=== PATIENT | female | born 1975 | race Two or more races ===

== ENCOUNTER 2022-08-14 17:31 | Emergency (ER) | payer OTHER ==
[~2022-08-14] VITALS: Ht 144.8 cm; Wt 47.6 kg
[~2022-08-14 17:31] MED LIST: CLOTRIMAZOLE10 MG MM; CORTEF20 MG; CORTISONE25 MG; DEXAMETHASONE0.5 MG; DEXAMETHASONE0.75 MG PO; DIFLUNISAL500 MG PO; FLUDROCORTISON0.1 MG PO; INTESTINEX680 MG PO; LEVAQUIN500 MG PO; LEVSIN/SL0.125 MG PO; OMEGA 3 FISH O1 EACH; Prednisone PO; VANCOMYCIN HCL250 MG; ZANTAC150 MG PO
[2022-08-14] MEDS ORDERED: HYDROCORTISONE10 MG PO (17:42)
[2022-08-14] MEDS ORDERED: EYE DROPS15 M1 OP (17:43)
[2022-08-14] MEDS ORDERED: FLUDROCORTISON0.1 MG PO (17:43)
[2022-08-14] MEDS ORDERED: PANTOPRAZOLE SO40 MG PO (17:43)
== END 2022-08-15 13:05 | disposition home or self-care (01) ==
LOC: ER 17:31
DX: E87.6 Hypokalemia (principal)